=== PATIENT | male | born 1955 | race Caucasian/White ===

== ENCOUNTER → 2021-12-07 09:04 | Outpatient (BNVA) | payer BC, SELFPAY | PROVIDERS: PCP Internal Medicine; Visit Provider Nurse Practitioner Family ==

== ENCOUNTER 2022-08-20 08:29 | Outpatient (REF) | payer OTHER, SELFPAY ==
[2022-08-20 11:34] LABS: MANUAL DIFF FLAG NO
[2022-08-20 11:44] LABS: Basophils Absolute Auto 0.1 X10*3/uL (0.0-0.2); Basophils Percent Auto 1.1 % (0-2); Eosinophils Absolute Auto 0.2 X10*3/uL (0.0-0.4); Eosinophils Percent Auto 3.1 % (0-4); Hematocrit 47.6 % (42.0-52.0); Imm Gran Abs Auto 0.01 X10*3/uL (0.00-0.03); Imm Gran Pct Auto 0.2 % (0.0-0.4); Lymphocytes Absolute Auto 1.7 X10*3/uL (1.2-4.9); Lymphocytes Percent Auto 33.1 % (20-40); Mean Corpuscular HGB Conc 33.6 g/dl (31.0-36.0); Mean Corpuscular Hemoglobin 31.1 pg (27.0-33.0); Mean Corpuscular Volume 92.6 fL (80.0-98.0); Mean Platelet Volume 9.5 fL (9.4-12.4); Monocytes Absolute Auto 0.5 X10*3/uL (0.1-1.2); Monocytes Percent Auto 9.8 % (2-11); Neutrophils Absolute Auto 2.8 x10*3/uL (2.0-8.3); Neutrophils Percent Auto 52.7 % (45-73); Platelet Count 238 X10*3/uL (160-400); Red Blood Count 5.14 X10*6/uL (4.60-5.80); Red Cell Distribution Width 12.6 % (11.0-16.0); White Blood Count 5.2 X10*3/uL (4.8-10.8)
[2022-08-20 12:23] LABS: Prostate Specific Antigen 1.05 ng/mL (<0.05-4.0)
[2022-08-20 12:39] LABS: Alanine Aminotransferase 21 U/L (0-40); Albumin Level 4.7 g/dL (3.5-5.0); Alkaline Phosphatase 51 U/L (39-117); Anion Gap 18 (12-20); Aspartate Amino Transferase 17 U/L (5-37); Bilirubin Total 0.7 mg/dL (0.0-1.0); Blood Urea Nitrogen 13 mg/dL (9-16); Calcium 9.8 mg/dL (8.4-10.2); Carbon Dioxide 24 mmol/L (22-29); Chloride 102 mmol/L (96-108); Estimated Glomerular Filt Rate > 60; Glucose Random 98 mg/dL (60-115); Potassium 4.2 mmol/L (3.3-5.1); Sodium 140 mmol/L (135-145); Total Protein 7.5 g/dL (6.5-8.0)
[2022-08-20 13:00] LABS: Cholesterol 189 mg/dL; HDL Cholesterol 42 mg/dL; LDL Cholesterol Calculated 126 mg/dl; Triglycerides 106 mg/dL
== END 2022-08-20 08:30 | disposition home or self-care (01) ==
LOC: HO.HMGCLDS 08:29
PROVIDERS: PCP Internal Medicine; Visit Provider Internal Medicine
DX: I10 Essential (primary) hypertension (principal); Z12.5 Encounter for screening for malignant neoplasm of prostate
CPT/HCPCS: 36415; 80053; 80061; 84153; 85025

== ENCOUNTER 2024-10-30 08:15 | Day surgery (SDC) | payer MEDICARE, SELFPAY ==
--- OUTSIDE RECORDS SUMMARY | 2024-09-28 13:18 | XMS_ITS | Patient Health Record ---
Author Organization [facility] Address [address] [place] [address] Care Team Providers Care Patent Prosecution Attorney Name Role Phone Nikita Elmore MD Primary Care Provider Tereso Evans Jr Unavailable ALLERGIES No Known Allergies REASON FOR REFERRAL No Information MEDICATIONS Medication SIG (Take, Route, Fr equency, Duration) Notes Start Date End Date Status Lisinopril 30 MG 1 tablet Orally Once a day Active clonazePAM 1 MG 1 tablet Orally Once a day Active PARoxetine HCl 40 MG 1 tablet in the mor wilber Orally Once a day Active IMMUNIZATIONS Vaccine Route Administration Date Status Comme nts Influenza Unknown 08/16/2018 Administered Influenza Unknown 09/28/2024 Refused SOCIAL HISTORY Tobacco Use: Social History Observation Description Date Details (start date - stop date) Never Smoker NA - NA Sex Assigned At : Social History Observation Description Sex Assigned At Unknown Tobacco Use/Smoking Question Answer Notes Patient is a nonsmoker Alcohol Screen Question Answer Notes Did you have a drink containing alcohol in the p ast year? No Points 0 Interpretation Negative PROBLEMS Problem Type ICD Code Onset Dates Problem Status W/U Status Risk SNOMED Code Notes Problem Personal history of colonic polyps (Z86.010) Active confirmed 518780291 Problem Colon cancer screening (Z12.11) Active confirmed 750062631 Problem Encounter for other preprocedural examination (Z01.818) Active confirmed 546611279 Problem Personal history of colonic polyps (Z86.0100) Active confirmed 831084784 VITAL SIGNS Temperature 96.6 degrees Fahrenheit 09/28/2024 Blood pressure diastolic 00 mm Hg 09/28/2024 Height 71.5 in 09/28/2024 Blood pressure systolic 000 mm Hg 09/28/2024 Weight 253 lb 2 oz lbs 09/28/2024 BMI 34.81 kg/m2 09/28/2024 Encounters Encounter Location Date Provider Diagnosis [facility] [address] [place] [address] 09/28/2024 Tereso Santa Jr Colon cancer screening Z12.11 ; Encounter for other preprocedural examination Z01.818 and Personal history of colonic polyps Z86.0100 ASSESSMENTS Encounter Date Diagnosis Assessment Notes Treatment Notes Treatment Clinical Notes 09/28/2024 Colon cancer screening (ICD-10 - Z12.11) Colonoscopy material was printed 09/28/2024 Encounter for other preprocedural examination (ICD-10 - Z01.818) 09/28/2024 Personal history of colonic polyps (ICD-10 - Z86.0100) PLAN OF TREATMENT Future Test Test Name Order Date COLONOSCOPY 01/12/2019 COLONOSCOPY 09/28/2024 Next Appt Details Provider Name:Tereso erwin Jr, 10/30/2024 10:50:00 AM, [address] [facility] , [place], [place], [id number], Insurance Providers Payer Name Payer Address Payer Phone Subscriber Number Group Number Insured Name Patient Relationship to Insured Coverage Start Date Coverage End Date [facility] [id number] [place] [address] [phone] [id number] JHOAN GUSTAFSON Self - patient is the insured MEDICAL (GENERAL) HISTORY Medical History History ICD Code hypertension ERIN, not currently on CPAP depression insomnia Colonoscopy 05/28, normal five-year follo wup for history of colon polyps Surgical History Surgery Date(Month/Year) hernia repair x2 fatty tumor removed from hand
--- OUTSIDE RECORDS SUMMARY | 2024-09-28 13:18 | XMS_ITS ---
Author Organization [facility] Address [address] [place] [address] Care Team Providers Care Video Coordinator Name Role Phone Nikita Elmore MD Primary Care Provider UnavailTereso Monteiro Jr Unavailable ALLERGIES No Known Allergies REASON FOR VISIT Patient presents today for a recall colonoscopy MEDICATIONS Medication SIG (Take, Route, Fr equency, Duration) Notes Start Date End Date Status Lisinopril 30 MG 1 tablet Orally Once a day Active clonazePAM 1 MG 1 tablet Orally Once a day Active PARoxetine HCl 40 MG 1 tablet in the mor wilber Orally Once a day Active IMMUNIZATIONS Vaccine Route Administration Date Status Comme nts Influenza Unknown 09/28/2024 Refused SOCIAL HISTORY Tobacco [...] Notes Problem Personal history of colonic polyps (Z86.0100) Active confirmed [id number] VITAL SIGNS BMI 34.81 kg/m2 09/28/2024 Blood pressure systolic 000 mm Hg 09/28/20 24 Blood pressure diastolic 00 mm Hg 024 Height 71.5 in 09/28/2024 Temperature 96.6 degrees Fahrenheit 09/28/20 24 Weight 253 lb 2 oz lbs 09/28/2024 Encounters Encounter Location Date Provider Diagnosis [facility] [address] [place] [address] 09/28/2024 Tereso Kiet Deal Colon cancer screening Z12.11 ; Encounter for other preprocedural examination Z01.818 and Personal history of colonic polyps Z86.0100 ASSESSMENTS Encounter Date Diagnosis Assessment Notes Treatment Notes Treatment Clinical Notes 09/28/2024 Colon cancer screening (ICD-10 - Z12.11) Colonoscopy material was printed 09/28/2024 Encounter for other preprocedural examination (ICD-10 - Z01.818) 09/28/2024 Personal history of colonic polyps (ICD-10 - Z86.0100) PLAN OF TREATMENT Treatment Notes Assessment Notes Colon cancer screening Colonoscopy mater ial was printed Future Test Test Name Order Date COLONOSCOPY 09/28/2024 Next Appt Details Follow Up: 1 Year, Reason: Provider Name:Tereso erwin Jr, 10/30/2024 10:50:00 AM, [address] [place] [address] , [place], [place], [phone], Progress Notes * Examination Category Sub-Category Detail Notes General Examination GENERAL APPEARANCE: in no ac [place] distress HEAD: normocephalic EYES: sclera non-icteric NECK/THYROID: no lymphadenopathy HEART: S1, S2 normal, no mu rmurs CHEST: normal shape and exp ansion LUNGS: clear to auscultatio n bilaterally ABDOMEN: soft, nontender, non distended, bowel sounds present, no organomegaly SKIN: anicteric EXTREMITIES: no clubbing, cyanosi s, or edema PSYCH: cognitive function i ntact ORAL CAVITY: mucosa moist
[2024-10-26 14:16] VITALS: BMI 34.8
--- NOTE | 2024-10-29 12:11 | P.CONAN_ITS ---
Documented by User: Katiana Pereira NP 10/29/24 12:11 HPI - Anesthesia Eval Consult details Narrative: 69yo M for Colonoscopy [facility] Active Problems Active Problems: All Active Problems Witnessed episode of apnea (Acute) Snoring (Acute) Past Medical History Medical History Insomnia Depression ERIN (obstructive sleep apnea) HTN (hypertension) Family History Family History Father Heart disease Brother Heart disease Mother HTN (hypertension) Dementia Surgical History Surgical History H/O colonoscopy Hx of hernia repair History of surgical removal of ganglion cyst Social History Social History Household Members: Spouse Alcohol intake: never Patient Tobacco Use Status: Never used Tobacco Use of substances other than those prescribed or required for medical reasons: No Are you DNR?: No Advance Directives: No Advance Directives Information Provided: Yes Meds Allergies Allergy/AdvReac Type Severity Reaction Status Date / Time No Known Allergies Allergy Verified 10/30/24 08:53 [No Known Allergies*] Home Medications ?Medication ?Instructions ?Recorded ?Confirmed ?Last Taken ?Type clonazepam 1 mg tablet 1 mg PO BEDTIME 12/07/21 10/30/24 Unknown History lisinopril 30 mg tablet 20 mg PO DAILY 12/07/21 10/30/24 Unknown History paroxetine HCl 40 mg tablet 40 mg PO DAILY 12/07/21 10/30/24 Unknown History Exam Height,Weight and Vital Signs: Height 5 ft 11.5 in Weight 114.759 kg Assessment and Plan Assessment Anesthesia Assessment: Chart Reviewed Documented by User: Estelle Davis MD 10/30/24 09:22 [facility] Past Medical History Medical History Insomnia Depression ERIN (obstructive sleep apnea) HTN (hypertension) Family History Family History Father Heart disease Brother Heart disease Mother HTN (hypertension) Dementia Family history of problems with anesthesia: No Surgical History Surgical History H/O colonoscopy Hx of hernia repair History of surgical removal of ganglion cyst History of Problems with Anesthesia: No Social History Social History Household Members: Spouse Alcohol intake: never Patient Tobacco Use Status: Never used Tobacco Use of substances other than those prescribed or required for medical reasons: No Are you DNR?: No Advance Directives: No Advance Directives Information Provided: Yes Meds Allergies Allergy/AdvReac Type Severity Reaction Status Date / Time No Known Allergies Allergy Verified 10/30/24 08:53 [No Known Allergies*] Home Medications ?Medication ?Instructions ?Recorded ?Confirmed ?Last Taken ?Type clonazepam 1 mg tablet 1 mg PO BEDTIME 12/07/21 10/30/24 Unknown History lisinopril 30 mg tablet 20 mg PO DAILY 12/07/21 10/30/24 Unknown History paroxetine HCl 40 mg tablet 40 mg PO DAILY 12/07/21 10/30/24 Unknown History Exam Airway Mallampati Class: II TM Dist: >3cm Neck ROM: Full Heart: rrr Lungs: cta Assessment and Plan Assessment Anesthesia Assessment: Anesthesia Plan Discussed Final Anesthetic Review Family History of Problems with Anesthesia: No History of Problems with Anesthesia: No NPO: Yes ASA Class: III Final Preanesthetic Review: No Changes in Pt Med Stat, Meds/Allgs Chart Reviewed, Consent Obtained/Reviewed and Anes Risks/Benef Reviewed Patient Risk: Intermediate Procedure Risk: Low Anesthetic Plan Anesthetic Plan: MAC: Disposition: Standard PACU
--- OUTSIDE RECORDS SUMMARY | 2024-10-30 08:21 | XMS_ITS | Continuity of Care Document ---
Author Organization [facility] Address [address] [place] [address]- Care Team Providers Care Manager Credit Risk Name Role Phone Catarina BOJORQUEZ, Nikita Duque Primary Care Physician [phone] Encounter [facility] Date(s): 09/10/24 - 10/10/24 [facility] [address] [place] [address]- Encounter Type: Triage Allergies, Adverse Reactions, Alerts No Known Allergies Immunizations Given and Recorded Vaccine Date Status Refusal Reason pneumococcal 20-valent conjugate vaccine 02/21/23 Given tetanus/diphtheria/pertussis, acel(Tdap) 08/23/22 Given tetanus/diphtheria/pertussis, acel(Tdap) 10/20/11 Recorded pneumococcal 23-valent vaccine 07/10/21 Given Influenza Virus Vaccine (oldterm) 08/11/20 Recorde d influenza virus vaccine, inactivated 11/12/19 Give n influenza virus vaccine, inactivated 1 07/14/18 Gi genesis influenza virus vaccine, inactivated 08/30/17 Give n Zoster Vaccine Live 06/26/17 Recorded 1Result Comment: [07/14/2018] [facility] [id number] Medications clonazePAM 0.5 mg oral tablet 2 tablet = 1 mg, By Mouth, Daily at bedtime, # 60 tablet, 2 Refills, Maintenance, 05/02/24 10:43:00 AM EDT, [facility] #[id number], Partial fill upon patient request if the prescription is for a schedule II opioid drug., 181.5, cm, 09/16/23 14:06:00 EST, Height Start Date: 05/02/24 Status: Ordered Quantity: 60.0 Unit: tablet Repeat number: 3 clonazePAM 1 mg oral tablet 1 tablet = 1 mg, By Mouth, Daily at bedtime, # 30 tablet, 5 Refills, Maintenance, 07/23/24 5:31:00 PM EDT, [facility] #[id number], Partial fill upon patient request if the prescription is for a schedule II opioid drug., 181.5, cm, 05/16/24 12:38:00 EDT, Height Start Date: 07/23/24 Status: Ordered Quantity: 30.0 Unit: tablet Repeat number: 6 lisinopril 30 mg oral tablet 1 tablet = 30 mg, By Mouth, Daily, # 90 tablet, 3 Refills, Soft Stop, 08/06/24 11:35:00 AM EDT, [facility] #[id number], 181.5, cm, 05/16/24 12:38:00 EDT, Height Start Date: 08/06/24 Status: Ordered Quantity: 90.0 Unit: tablet Repeat number: 4 PARoxetine 40 mg oral tablet 40 mg, 1, tablet, By Mouth, Daily, # 90 tablet, Refills 3, Tot. Refills 3, Maintenance, 08/06/24 11:35:00 AM EDT, Route to Pharmacy Electronically, [facility] #[id number], Partial fill upon patient request if the prescription is for a schedule II opioid drug., 181.5, cm, 05/16/24 12:38:00 EDT,Height Start Date: 08/06/24 Status: Ordered Quantity: 90.0 Unit: tablet Repeat number: 4 Problem List Condition Confirmation Course Effective Dates Status H ealth Status Informant Benign hypertension Confirmed Active Epistaxis Confirmed Active Hematuria Confirmed Active Depression Confirmed Active Diverticulosis Confirmed Active Dyslipidemia Confirmed Active Impaired fasting glucose Confirmed Active Increased urinary frequency Confirmed Active Insomnia Confirmed Active Internal hemorrhoids Confirmed Active Obese class I Confirmed Active Obesity Confirmed Active Obstructive sleep apnea Confirmed Active Social History Social History Type Response Smoking Status Never smoker; Tobacc o user in household: No entered on: 05/31/17 Sex Sex Representation Male (finding) Patient Care team information Care Team Personnel Name: Nikita Elmore MD Position: S Physician - Primary Care Member Role: PCP Address: [address] [place] [address]- Telecom: Care Team Related Persons Name: ELROY GUSTAFSON Insurance Providers Guarantor name: JHOAN GUSTAFSON Health Plan Information #: 1 Payer: MEGAN Member Number: NA Policy Number: NA Group Number: NA
--- OUTSIDE RECORDS SUMMARY | 2024-10-30 08:21 | XMS_ITS | Continuity of Care Document ---
Author Organization [facility] Address [address] [place] [phone] Care Team Providers Care Lamp Cleaner Street Light Name Role Phone Catarina BOJORQUEZ, Nikita Duque Primary Care Physician Encounter [facility] Date(s): 09/11/24 - 10/11/[address] [address] Attending Physician: Riya Matute Admitting Physician: AdmRiya bal Referring Physician: Admtr Ar8 Encounter Type: Triage Allergies, Adverse Reactions, Alerts [...] Vaccine Live 06/26/17 Recorded 1Result Comment: [07/14/2018] [facility] [id number] Medications clonazePAM 0.5 mg oral tablet 2 tablet = 1 mg, By Mouth, Daily at bedtime, # 60 tablet, 2 Refills, Maintenance, 05/02/24 10:43:00 AM EDT, [facility] #[id number], Partial fill upon patient request if the prescription is for a schedule II opioid drug., 181.5, cm, 09/16/23 14:06:00 EST, Height Start Date: 05/02/24 Status: Ordered Quantity: 60.0 Unit: tablet Repeat number: 3 clonazePAM 1 mg oral tablet 1 tablet = 1 mg, By Mouth, Daily at bedtime, # 30 tablet, 5 Refills, Maintenance, 07/23/24 5:31:00 PM EDT, [facility] #[id number], Partial fill upon patient request if the prescription is for a schedule II opioid drug., 181.5, cm, 05/16/24 12:38:00 EDT, Height Start Date: 07/23/24 Status: Ordered Quantity: 30.0 Unit: tablet Repeat number: 6 lisinopril 30 mg oral tablet 1 tablet = 30 mg, By Mouth, Daily, # 90 tablet, 3 Refills, Soft Stop, 08/06/24 11:35:00 AM EDT, [facility] #[id number], 181.5, cm, 05/16/24 12:38:00 EDT, Height Start Date: 08/06/24 Status: Ordered Quantity: 90.0 Unit: tablet Repeat number: 4 PARoxetine 40 mg oral tablet 40 mg, 1, tablet, By Mouth, Daily, # 90 tablet, Refills 3, Tot. Refills 3, Maintenance, 08/06/24 11:35:00 AM EDT, Route to Pharmacy Electronically, [facility] #[id number], Partial fill upon patient request if the [...] Team Personnel Name: Nikita Elmore MD Position: [facility] Physician - Primary Care Member Role: PCP Address: [address] [place] [address]- Telecom: Care Team Related Persons Name: ELROY GUSTAFSON Insurance Providers Guarantor name: JHOAN GUSTAFSON Health Plan Information #: 1 Payer: NA Member Number: NA Policy Number: NA Group Number: NA
--- OUTSIDE RECORDS SUMMARY | 2024-10-30 08:21 | XMS_ITS | Continuity of Care Document ---
Author Organization [facility] Address [address] [place] [address]- Care Team Providers Care Beater Operator Name Role Phone Nikita Elmore MD Primary Care Physician [facility] [id number] Date(s): 06/13/24 - 10/11/[address] [address] Attending Physician: Dorothy Jaime MD Admitting Physician: Dorothy Jaime MD Referring Physician: Nikita Elmore MD Encounter Type: Pre-OutPatient One Time Allergies, Adverse Reactions, Alerts No Known Allergies [...] Vaccine Live 06/26/17 Recorded 1Result Comment: [07/14/2018] [facility] [id number] Medications clonazePAM 0.5 mg oral tablet 2 tablet = 1 mg, By Mouth, Daily at bedtime, # 60 tablet, 2 Refills, Maintenance, 05/02/24 10:43:00 AM EDT, [facility] #[id number], Partial fill upon patient request if the prescription is for a schedule II opioid drug., 181.5, cm, 09/16/23 14:06:00 EST, Height Start Date: 05/02/24 Status: Ordered Quantity: 60.0 Unit: tablet Repeat number: 3 clonazePAM 1 mg oral tablet 1 tablet = 1 mg, By Mouth, Daily at bedtime, # 30 tablet, 5 Refills, Maintenance, 07/23/24 5:31:00 PM EDT, [facility] #[id number], Partial fill upon patient request if the prescription is for a schedule II opioid drug., 181.5, cm, 05/16/24 12:38:00 EDT, Height Start Date: 07/23/24 Status: Ordered Quantity: 30.0 Unit: tablet Repeat number: 6 lisinopril 30 mg oral tablet 1 tablet = 30 mg, By Mouth, Daily, # 90 tablet, 3 Refills, Soft Stop, 08/06/24 11:35:00 AM EDT, [facility] #[id number], 181.5, cm, 05/16/24 12:38:00 EDT, Height Start Date: 08/06/24 Status: Ordered Quantity: 90.0 Unit: tablet Repeat number: 4 PARoxetine 40 mg oral tablet 40 mg, 1, tablet, By Mouth, Daily, # 90 tablet, Refills 3, Tot. Refills 3, Maintenance, 08/06/24 11:35:00 AM EDT, Route to Pharmacy Electronically, [facility] #[id number], Partial fill upon patient request if the [...] Team Personnel Name: Nikita Elmore MD Position: [facility] Physician - Primary Care Member Role: PCP Address: [address] [place] [phone]- Telecom: Care Team Related Persons Name: ELROY GUSTAFSON Insurance Providers Guarantor name: JHOAN JANAY Health Plan Information #: 1 Payer: NA Member Number: [id number] Policy Number: NA Group Number: NA Health Plan Information #: 2 Payer: NA Member Number: [id number] Policy Number: NA Group Number: NA
[2024-10-30 08:55] VITALS: BMI 33.7
[2024-10-30 09:02] VITALS: BP 128/83; PULSE 83; RESP 15; TEMP 36.6; O2SAT 95
[2024-10-30] MEDS: Lactated Ringers 1,000 ML 100 ML IVCONT (09:20)
--- NOTE | 2024-10-30 09:49 | MHC.SHP ---
Pre-Procedural Eval Section A - 24 Hr Update-Section A only Date of Service: 10/30/24 Section B - Complete if H&P > 30 days Chief Complaint: Encounter for screening for malignant neoplasm of Details of Present Illness: screening Relevant Family History (Specify if Yes): No Relevant Social History: None Present Medications: see Short Stay Collaborative assessment Medical History: No relevant PMH History of Previous Operations: No relevant previous surgery Allergies: Allergies Allergy/AdvReac Type Severity Reaction Status Date / Time No Known Allergies Allergy Verified 10/30/24 08:53 [No Known Allergies*] Review of Systems Sugical H&P ROS: Negative: Constitution, Cardiovascular, Respiratory, Neurological, Psychiatric, Hem-Onc, Allergic/Immunologic, Gastrointestinal, Genitourinary, Musculoskeletal, Integumentary, Endocrine and Eyes/Ears/Nose/Throat Exam Surgical H&P Exam: Normal: HEENT, Normal: Heart, Normal: Lungs, Normal: Extremities, Normal: Abdomen, Normal: Skin and Normal: Neurological Plan Diagnosis/Plan: Unchanged I have reviewed the history and physical and performed a pertinent physical examination on my patient. No changes have occurred unless specified. Time Spent With Patient Time: Total time managing care of this patient today ____ minutes.
[2024-10-30 10:34] VITALS: BP 95/66; PULSE 72; RESP 16; TEMP 36.3; O2SAT 96
--- NOTE | 2024-10-30 10:49 | OP_ITS ---
DATE OF SERVICE: 10/30/2024 SURGEON: Tereso Santa MD INDICATIONS: Colon cancer screening and prior history of adenomatous colon polyps PREOPERATIVE DIAGNOSIS: POSTOPERATIVE DIAGNOSIS: PROCEDURE PERFORMED: Colonoscopy to the terminal ileum. ESTIMATED BLOOD LOSS: COMPLICATIONS: ANESTHESIA: Medications, monitored anesthesia care. ASSISTANTS: SPECIMENS: DESCRIPTION OF PROCEDURE: A history and physical was performed. The risks and benefits of the procedure were explained to the patient. Informed consent was obtained. The patient was placed in the left lateral decubitus position. A digital rectal exam was performed and was found to be normal. The Olympus pediatric video colonoscope was introduced into the rectum and advanced to the cecum. The cecum was identified by transillumination, palpation, identification of ileocecal valve. Examination was performed. The scope was removed. He tolerated the procedure well and was taken to recovery area in stable condition. FINDINGS: The terminal ileum was examined and appeared normal. The visualized colonic mucosa was normal. The quality of the prep was good. No polyps were identified. Retroflexed examination showed some small internal hemorrhoids. The abdominal wall pressure was used to assist in advancement of the scope as the sigmoid was somewhat redundant. IMPRESSION: Normal colonoscopy. RECOMMENDATION: 1. Follow up as needed. 2. Repeat colonoscopy is recommended in 10 years for average-risk individuals. MD DOUG Barron/KASEY / [id number]
[2024-10-30 10:50] VITALS: BP 102/69; PULSE 70; RESP 16; O2SAT 97
== END 2024-10-30 11:32 | disposition home or self-care (01) ==
PROVIDERS: PCP Internal Medicine; Visit Provider Internal Medicine Gastroenterology
PROC: 0DJD8ZZ Inspection of Lower Intestinal Tract, Via Natural or Artificial Opening Endoscopic (ICD-10-PCS; CPT 45378; principal; 2024-10-30 10:00)
DX: Z12.11 Encounter for screening for malignant neoplasm of colon (principal); K64.8 Other hemorrhoids; Z86.0101 Personal history of adenomatous and serrated colon polyps; I10 Essential (primary) hypertension; G47.33 Obstructive sleep apnea (adult) (pediatric)
CPT/HCPCS: G0105; J2704